=== PATIENT | female | born 1945 | race Caucasian/White ===

== ENCOUNTER 2021-09-05 14:09 | Outpatient (CLI) | payer MEDICARE | END 2021-09-05 14:10 | disposition home or self-care (01) | LOC: BICMAMMO 14:09 | PROVIDERS: ATTEND Family Medicine | DX: Z12.31 Encounter for screening mammogram for malignant neoplasm of breast (principal); Z13.820 Encounter for screening for osteoporosis; E55.9 Vitamin D deficiency, unspecified; M85.851 Other specified disorders of bone density and structure, right thigh; Z80.3 Family history of malignant neoplasm of breast | CPT/HCPCS: 77063; 77067; 77080 ==

== ENCOUNTER 2022-05-15 10:51 | Outpatient (CLI) | payer MEDICARE, OTHER ==
[2022-05-15 11:21] LABS: Hemoglobin 13.3 g/dL (12.0-15.5); Mean Corpuscular HGB CONC 30.9 g/dL (32.0-36.0); Mean Corpuscular Hemoglobin 25.9 pg (27.0-33.0); Mean Corpuscular Volume 83.8 fl (81.6-98.3); Mean Platelet Volume 11.3 fl (7.4-10.4); Platelet Count 291 10x3/uL (150-450); RBC Distribution Width 15.2 % (11.5-14.5); Red Blood Cell (RBC) Count 5.13 10x6/uL (3.90-5.03); White Blood Cell (WBC) Count 9.4 10x3/uL (3.5-10.5)
[2022-05-15 11:28] LABS: Bilirubin Neg (Negative); Blood, Urine Negative (Negative); Clarity Clear (Clear); Glucose, Urine (Dipstick) Normal (Negative); Ketone, Urine Negative (Negative); Leukocyte Negative (Negative); Nitrite Negative (Negative); Protein, Urine (Dipstick) Negative (Neg-Trace); Specific Gravity, Urine 1.015 (1.005-1.030); Urobilinogen Normal mg/dL (Less than 2)
[2022-05-15 11:40] LABS: PTT 29.4 sec (22.0-33.0); Prothrombin Time 11.2 sec (9.5-12.1)
[2022-05-15 11:50] LABS: ALT (SGPT) 35 U/L (8-55); AST (SGOT) 28 U/L (5-34); Albumin 4.6 g/dL (3.4-4.8); Alkaline Phosphatase 120 U/L (40-110); Anion Gap 17 mmol/L (10-20); BUN (Urea Nitrogen) 10 mg/dL (9.8-20.1); Bilirubin, Total 1.5 mg/dL (0.2-1.2); Calc. Creatinine Clearance 0 mL/min (70-130); Calcium 9.8 mg/dL (7.8-10.44); Carbon Dioxide 26 mmol/L (23-31); Chloride 102 mmol/L (98-107); Estimated GFR 74; Globulin 2.9 g/dL (2.4-3.5); Glucose 124 mg/dL (83-110); Potassium 4.2 mmol/L (3.5-5.1); Protein, Total 7.5 g/dL (5.8-8.1); Sodium 141 mmol/L (136-145)
== END 2022-05-15 10:52 | disposition home or self-care (01) ==
LOC: LABBT 10:51
PROVIDERS: ATTEND Internal Medicine Cardiovascular Disease
DX: Z01.818 Encounter for other preprocedural examination (principal); I48.0 Paroxysmal atrial fibrillation
CPT/HCPCS: 80053; 81003; 85027; 85610; 85730; 86850; 86900; 86901; 93005; 93010

== ENCOUNTER 2022-05-15 11:00 | Inpatient (IN) | payer MEDICARE, OTHER ==
[2022-05-15 11:21] LABS: Hemoglobin 13.3 g/dL (12.0-15.5); Mean Corpuscular HGB CONC 30.9 g/dL (32.0-36.0); Mean Corpuscular Hemoglobin 25.9 pg (27.0-33.0); Mean Corpuscular Volume 83.8 fl (81.6-98.3); Mean Platelet Volume 11.3 fl (7.4-10.4); Platelet Count 291 10x3/uL (150-450); RBC Distribution Width 15.2 % (11.5-14.5); Red Blood Cell (RBC) Count 5.13 10x6/uL (3.90-5.03); White Blood Cell (WBC) Count 9.4 10x3/uL (3.5-10.5)
[2022-05-15 11:28] LABS: Bilirubin Neg (Negative); Blood, Urine Negative (Negative); Clarity Clear (Clear); Glucose, Urine (Dipstick) Normal (Negative); Ketone, Urine Negative (Negative); Leukocyte Negative (Negative); Nitrite Negative (Negative); Protein, Urine (Dipstick) Negative (Neg-Trace); Specific Gravity, Urine 1.015 (1.005-1.030); Urobilinogen Normal mg/dL (Less than 2)
[2022-05-15 11:40] LABS: PTT 29.4 sec (22.0-33.0); Prothrombin Time 11.2 sec (9.5-12.1)
[2022-05-15 11:50] LABS: ALT (SGPT) 35 U/L (8-55); AST (SGOT) 28 U/L (5-34); Albumin 4.6 g/dL (3.4-4.8); Alkaline Phosphatase 120 U/L (40-110); Anion Gap 17 mmol/L (10-20); BUN (Urea Nitrogen) 10 mg/dL (9.8-20.1); Bilirubin, Total 1.5 mg/dL (0.2-1.2); Calc. Creatinine Clearance 0 mL/min (70-130); Calcium 9.8 mg/dL (7.8-10.44); Carbon Dioxide 26 mmol/L (23-31); Chloride 102 mmol/L (98-107); Estimated GFR 74; Globulin 2.9 g/dL (2.4-3.5); Glucose 124 mg/dL (83-110); Potassium 4.2 mmol/L (3.5-5.1); Protein, Total 7.5 g/dL (5.8-8.1); Sodium 141 mmol/L (136-145)
[2022-05-21] MEDS ORDERED: CEFAZOLIN 1 GM VIAL ONE ×2 (09:06→10:17)
[2022-05-21] MEDS ORDERED: Heparin 10,000 UNITS/ 10 ML VIAL ONE ×2 (09:06→10:17)
[2022-05-21] MEDS ORDERED: Protamine Sulfate 50 MG/5 ML VIAL ONE (09:06)
[2022-05-21] MEDS ORDERED: fentaNYL 50 mcg/mL 1 mL Vial ONE ×2 (10:15→12:20)
[2022-05-21] MEDS ORDERED: Lidocaine 1% PF 5 ML VIAL ONE (10:41)
[2022-05-21] MEDS ORDERED: Dexamethasone 20 MG/5 ML VIAL ONE (10:41)
[2022-05-21] MEDS ORDERED: Rocuronium Bromide 10 MG/ML (10ML VIAL) ONE (10:41)
[2022-05-21] MEDS ORDERED: PROPOFOL 200 MG/20 ML VIAL ONE (10:41)
[2022-05-21] MEDS ORDERED: Ondansetron PF 4 MG/2 ML Vial ONE (10:41)
[2022-05-21] MEDS ORDERED: Iopamidol 370 76% 100 ML VIAL ONE (12:30)
[2022-05-21] MEDS ORDERED: Acetaminophen/Codeine 30-300mg Tablet PO PRN ×2 (13:30)
[2022-05-21] MEDS ORDERED: Acetaminophen/Codeine 30-300mg Tablet ONE (15:19)
[2022-05-21 19:47] VITALS: BMI 23.1
[2022-05-21] MEDS ORDERED: Atorvastatin Calcium 40 MG TAB PO SCH (21:00)
[2022-05-21] MEDS ORDERED: CO Q-10 CAPSULE 50 MG PO SCH (21:00)
[2022-05-21] MEDS ORDERED: Doxycycline 100 MG CAP PO SCH (21:00)
[2022-05-21] MEDS: Apixaban 5 MG TAB PO SCH (21:49)
[2022-05-21] MEDS: Carvedilol 3.125 MG TAB PO SCH (21:49)
[2022-05-21] MEDS: Vit A,C & E/Lutein/Minerals Tablet PO SCH (21:49)
[2022-05-21] MEDS ORDERED: Digoxin 0.125 MG TAB PO SCH (22:15)
[2022-05-21] MEDS ORDERED: Valsartan 80 MG TAB PO SCH (22:15)
[2022-05-22] MEDS ORDERED: Digoxin 0.125 MG TAB PO SCH (09:00)
[2022-05-22] MEDS ORDERED: CRANBERRY 400 MG PO SCH (09:00)
[2022-05-22] MEDS ORDERED: Multivit, Therapeutic 1 TAB PO SCH (09:00)
[2022-05-22] MEDS ORDERED: Cholecalciferol 1,000 UNITS (25 MCG) TAB PO SCH (09:00)
[2022-05-22] MEDS ORDERED: Calcitonin,Salmon,Synthetic 200 Units 3.7 ML PUMP L NARE SCH (09:00)
[2022-05-22] MEDS ORDERED: Fluticasone Propionate Nasal Spray 16 gm Bottle NASAL SCH (09:00)
[2022-05-22] MEDS ORDERED: Fish Oil 1,000 MG CAP PO SCH (09:00)
[2022-05-22] MEDS ORDERED: Valsartan 80 MG TAB PO SCH (09:00)
[2022-05-22] MEDS ORDERED: Loratadine 10 MG TAB PO SCH (09:00)
[2022-05-22] MEDS ORDERED: Potassium Chloride 20 MEQ TAB PO SCH (09:00)
[2022-05-22] MEDS ORDERED: Furosemide 20 MG TAB PO SCH (09:00)
[2022-05-22] MEDS ORDERED: Floranex 1 GM Packet PO SCH (09:00)
[2022-05-22] MEDS: Apixaban 5 MG TAB PO SCH (09:03)
[2022-05-22] MEDS: Vit A,C & E/Lutein/Minerals Tablet PO SCH (09:03)
[2022-05-22] MEDS: Carvedilol 3.125 MG TAB PO SCH (09:08)
[2022-05-22 11:19] VITALS: BP 129/59; TEMP 97.5
== END 2022-05-22 11:52 | disposition home or self-care (01) | DRG 274 ==
LOC: SURG A 05-21 07:32 → 2NO 05-21 19:19
PROVIDERS: ADMIT Internal Medicine Cardiovascular Disease; ATTEND Internal Medicine Cardiovascular Disease
PROC: 02L73DK Occlusion of Left Atrial Appendage with Intraluminal Device, Percutaneous Approach (ICD-10-PCS; principal; 2022-05-21)
PROC: B24BZZ4 Ultrasonography of Heart with Aorta, Transesophageal (ICD-10-PCS; 2022-05-21)
DX: I48.0 Paroxysmal atrial fibrillation (principal); Z79.01 Long term (current) use of anticoagulants; Z88.2 Allergy status to sulfonamides; Z88.8 Allergy status to other drugs, medicaments and biological substances; Z91.018 Allergy to other foods; Z91.040 Latex allergy status; Z90.49 Acquired absence of other specified parts of digestive tract; Z98.890 Other specified postprocedural states
CPT/HCPCS: 33340; 80053; 81003; 85027; 85347; 85610; 85730; 86850; 86900; 86901; 93306; 93312; C1725; C1759; C1760; C1894; J0690; J1100; J1644; J2405; J2704; J2720; J3010; Q9967

== ENCOUNTER 2022-10-30 11:52 | Outpatient (CLI) | payer MEDICARE | END 2022-10-30 11:53 | disposition home or self-care (01) | LOC: BICMAMMO 11:52 | PROVIDERS: ATTEND Family Medicine | DX: Z12.31 Encounter for screening mammogram for malignant neoplasm of breast (principal); Z80.3 Family history of malignant neoplasm of breast | CPT/HCPCS: 77063; 77067 ==

== ENCOUNTER 2022-11-28 06:09 | Day surgery (SDC) | payer MEDICARE, OTHER ==
[2022-11-27 09:26] VITALS: BMI 23.5
[2022-11-27 10:32] LABS: Hematocrit 43.2 % (34.9-44.5); Hemoglobin 13.7 g/dL (12.0-15.5); Mean Corpuscular HGB CONC 31.7 g/dL (32.0-36.0); Mean Corpuscular Hemoglobin 26.6 pg (27.0-33.0); Mean Corpuscular Volume 83.9 fl (81.6-98.3); Mean Platelet Volume 11.2 fl (7.4-10.4); Platelet Count 322 10x3/uL (150-450); RBC Distribution Width 15.2 % (11.5-14.5); Red Blood Cell (RBC) Count 5.15 10x6/uL (3.90-5.03); White Blood Cell (WBC) Count 8.3 10x3/uL (3.5-10.5)
[2022-11-27 10:56] LABS: Anion Gap 14 mmol/L (10-20); BUN (Urea Nitrogen) 8 mg/dL (9.8-20.1); Calc. Creatinine Clearance 70 mL/min (70-130); Calcium 9.7 mg/dL (7.8-10.44); Carbon Dioxide 27 mmol/L (23-31); Chloride 103 mmol/L (98-107); Estimated GFR 78; Glucose 147 mg/dL (83-110); Potassium 4.5 mmol/L (3.5-5.1); Sodium 139 mmol/L (136-145)
[2022-11-28] MEDS ORDERED: PROPOFOL 40 ML ONE (06:53)
[2022-11-28] MEDS ORDERED: Lidocaine 1% PF 5 ML VIAL ONE (07:44)
== END 2022-11-28 09:00 | disposition home or self-care (01) ==
LOC: SDC 06:09
PROVIDERS: ATTEND Internal Medicine Cardiovascular Disease
PROC: B245ZZ4 Ultrasonography of Left Heart, Transesophageal (ICD-10-PCS; principal; 2022-11-28)
DX: I48.11 Longstanding persistent atrial fibrillation (principal); I11.0 Hypertensive heart disease with heart failure; I50.32 Chronic diastolic (congestive) heart failure; R42 Dizziness and giddiness; Z91.040 Latex allergy status; Z88.6 Allergy status to analgesic agent; Z88.5 Allergy status to narcotic agent; Z88.2 Allergy status to sulfonamides; Z79.01 Long term (current) use of anticoagulants; Z79.899 Other long term (current) drug therapy; Z86.73 Personal history of transient ischemic attack (TIA), and cerebral infarction without residual deficits; Z90.49 Acquired absence of other specified parts of digestive tract
CPT/HCPCS: 80048; 85027; 93312; J2704

== ENCOUNTER 2023-12-27 10:28 | Inpatient (IN) | payer MEDICARE ==
[2023-12-27 12:13] LABS: #Basophils 0.07 10x3/uL (0.0-0.2); %Basophils 0.4 % (0.0-1.0); %Eosinophils 0.2 % (0.0-10.0); %Lymphocytes 8.4 % (21.0-51.0); %Monocytes 12.6 % (0.0-10.0); %Neutrophils 77.9 % (42.0-75.0); Hematocrit 37.7 % (36.0-47.0); Hemoglobin 12.5 g/dL (12.0-16.0); Mean Corpuscular HGB CONC 33.2 g/dL (32.0-36.0); Mean Corpuscular Hemoglobin 26.8 pg (27.0-31.0); Mean Corpuscular Volume 80.9 fL (78.0-98.0); Mean Platelet Volume 10.9 fL (7.4-10.4); Platelet Count 297 10x3/uL (130-400); RBC Distribution Width 14.5 % (11.5-14.5); Red Blood Cell (RBC) Count 4.66 mill/uL (4.20-5.40)
[2023-12-27 12:23] LABS: ALT (SGPT) 20 U/L (8-55); AST (SGOT) 28 U/L (5-34); Albumin 3.6 g/dL (3.4-4.8); Alkaline Phosphatase 104 U/L (40-110); Anion Gap 16 mmol/L (10-20); BUN (Urea Nitrogen) 10 mg/dL (9.8-20.1); Bilirubin, Total 2.3 mg/dL (0.2-1.2); Calc. Creatinine Clearance 0 mL/min (70-130); Calcium 9.2 mg/dL (7.8-10.44); Carbon Dioxide 22 mmol/L (23-31); Chloride 102 mmol/L (98-107); Estimated GFR 89; Globulin 4.1 g/dL (2.4-3.5); Glucose 157 mg/dL (83-110); Magnesium 2.2 mg/dL (1.6-2.6); Potassium 3.7 mmol/L (3.5-5.1); Protein, Total 7.7 g/dL (5.8-8.1); Sodium 136 mmol/L (136-145)
[2023-12-27 12:28] LABS: Troponin I Less than 0.010 ng/mL (< 0.028)
[2023-12-27] MEDS ORDERED: cefTRIAXone (ROCEPHIN) 2 GM VIAL ONE (12:29)
[2023-12-27] MEDS ORDERED: Acetaminophen 500 MG TAB ONE (12:29)
[2023-12-27] MEDS ORDERED: Ondansetron PF 4 MG/2 ML Vial IVP PRN (14:00)
[2023-12-27 15:07] LABS: Bacteria/HPF None Seen HPF (None Seen); Bilirubin Negative (Negative); Blood, Urine Negative (Negative); CAUTI Indications for Culture Acute Hematuria; Clarity Clear (Clear); Glucose, Urine (Dipstick) Normal (Negative); Ketone, Urine Negative (Negative); Leukocyte Negative Leu/uL (Negative); Nitrite Negative (Negative); Protein, Urine (Dipstick) Negative (Neg-Trace); RBC/HPF 0-3 HPF (0-3); Squamous Epithelial None Seen HPF (0-3); Urobilinogen Normal mg/dL (Less than 2); WBC/HPF 0-3 HPF (0-3); pH, Urine 6.5 (5.0-9.0)
[2023-12-27 15:08] LABS: Urine Culture Reflex No No
[2023-12-27 16:11] LABS: Lactic Acid 2.43 mmol/L (0.5-2.2)
[2023-12-27 17:23] VITALS: BMI 22.5
[2023-12-27] MEDS: Vancomycin (BATCH) 1.75 GM in Premix 1 BAG IVPB SCH (22:05)
[2023-12-27] MEDS: Naproxen 500 MG TAB PO SCH (22:06)
[2023-12-27] MEDS: Carvedilol 3.125 MG TAB PO SCH (22:07)
[2023-12-28 04:43] LABS: #Basophils 0.07 10x3/uL (0.0-0.2); %Basophils 0.6 % (0.0-1.0); %Eosinophils 2.5 % (0.0-10.0); %Lymphocytes 22.6 % (21.0-51.0); %Monocytes 14.5 % (0.0-10.0); %Neutrophils 59.3 % (42.0-75.0); Hematocrit 32.7 % (36.0-47.0); Hemoglobin 10.4 g/dL (12.0-16.0); Mean Corpuscular HGB CONC 31.8 g/dL (32.0-36.0); Mean Corpuscular Hemoglobin 26.6 pg (27.0-31.0); Mean Corpuscular Volume 83.6 fL (78.0-98.0); Mean Platelet Volume 10.8 fL (7.4-10.4); Platelet Count 248 10x3/uL (130-400); RBC Distribution Width 14.6 % (11.5-14.5); Red Blood Cell (RBC) Count 3.91 mill/uL (4.20-5.40)
[2023-12-28 04:58] LABS: Anion Gap 12 mmol/L (10-20); BUN (Urea Nitrogen) 8 mg/dL (9.8-20.1); Calc. Creatinine Clearance 81 mL/min (70-130); Calcium 8.3 mg/dL (7.8-10.44); Carbon Dioxide 23 mmol/L (23-31); Chloride 107 mmol/L (98-107); Estimated GFR 90; Glucose 92 mg/dL (83-110); Potassium 3.1 mmol/L (3.5-5.1); Sodium 139 mmol/L (136-145)
[2023-12-28] MEDS: Digoxin 0.125 MG TAB PO SCH (08:35)
[2023-12-28] MEDS: Atorvastatin Calcium 40 MG TAB PO SCH (08:35)
[2023-12-28] MEDS: Furosemide 20 MG TAB PO SCH (08:36)
[2023-12-28] MEDS: Multivitamin W/ Minerals 1 TAB PO SCH (08:36)
[2023-12-28] MEDS: metFORMIN XR 500 MG ER.TAB PO SCH (08:36)
[2023-12-28] MEDS: Potassium Chloride 20 MEQ TAB PO SCH (08:36)
[2023-12-28] MEDS: Calcium Carbonate 600 MG TAB PO SCH (08:37)
[2023-12-28] MEDS: Vit A,C & E/Lutein/Minerals Tablet PO SCH (08:38)
[2023-12-28] MEDS: Fluticasone Propionate Nasal Spray 16 gm Bottle NASAL SCH (08:38)
[2023-12-28] MEDS: Floranex 1 GM Packet PO SCH (08:38)
[2023-12-28] MEDS ORDERED: Non-Formulary Item 1 EACH (Fluticasone Furoate [Arnuity Ellipta] 50 MCG Blst.W.Dev) IH SCH (09:00)
[2023-12-28] MEDS: Valsartan 80 MG TAB PO SCH ×2 (09:21→20:54)
[2023-12-28] MEDS: cefTRIAXone\\ROCEPHIN 2 GM in Sodium Chloride 0.9% 100 ML IVPB SCH (12:38)
[2023-12-28] MEDS: Acetaminophen 500 MG TAB PO PRN (12:45)
[2023-12-28] MEDS: traMADol HCl 50 MG TAB PO PRN (18:06)
[2023-12-29 04:28] LABS: #Basophils 0.06 10x3/uL (0.0-0.2); %Basophils 0.7 % (0.0-1.0); %Eosinophils 6.2 % (0.0-10.0); %Lymphocytes 22.7 % (21.0-51.0); %Monocytes 10.7 % (0.0-10.0); %Neutrophils 59.5 % (42.0-75.0); Hematocrit 34.2 % (36.0-47.0); Hemoglobin 10.9 g/dL (12.0-16.0); Mean Corpuscular HGB CONC 31.9 g/dL (32.0-36.0); Mean Corpuscular Hemoglobin 26.4 pg (27.0-31.0); Mean Corpuscular Volume 82.8 fL (78.0-98.0); Mean Platelet Volume 10.9 fL (7.4-10.4); Platelet Count 227 10x3/uL (130-400); RBC Distribution Width 14.5 % (11.5-14.5); Red Blood Cell (RBC) Count 4.13 mill/uL (4.20-5.40)
[2023-12-29 04:53] LABS: Anion Gap 12 mmol/L (10-20); BUN (Urea Nitrogen) 12 mg/dL (9.8-20.1); Calc. Creatinine Clearance 72 mL/min (70-130); Calcium 8.5 mg/dL (7.8-10.44); Carbon Dioxide 22 mmol/L (23-31); Cardiac Risk 2.8 (Less than 4.5); Chloride 107 mmol/L (98-107); Cholesterol 91 mg/dl (< 200 Desired); Estimated GFR 87; Glucose 97 mg/dL (83-110); HDL Cholesterol 32 mg/dL (>60 Neg Risk); LDL Cholesterol, Calculated 42 mg/dL; Potassium 3.5 mmol/L (3.5-5.1); Sodium 137 mmol/L (136-145); Triglycerides 87 mg/dL (Less than 150)
[2023-12-29] MEDS: Fish Oil 1,000 MG CAP PO SCH (09:04)
[2023-12-29] MEDS: Aspirin 81 mg Enteric Coated Tablet PO SCH (09:04)
[2023-12-29] MEDS: Calcitonin,Salmon,Synthetic 200 Units NASAL PUMP 3.7 ML L NARE SCH (09:11)
[2023-12-29 11:27] VITALS: BMI 22.5
[2023-12-29 15:30] VITALS: BP 168/76
[2023-12-29 16:11] VITALS: TEMP 97.5
[2023-12-30 11:48] LABS: ANA Symphony (Qualitative) Negative (Negative); ANA Symphony (Quantitative) 0.3 Ratio (< 0.7 Negative); EliA RAS New Method **** NEW METHOD ****; Rheumatoid Factor IgA Antibody 3.6 IU/mL (<14 Negative); Rheumatoid Factor IgM Antibody 1.1 IU/mL (<3.5 Negative); dsDNA IgG Antibody 4.5 IU/mL (<10 Negative)
[2023-12-30] MEDS ORDERED: FLU (Fluad Triv) TS24-25 (65UP)/MF59C/PF 45 MCG/0.5 ML Syringe IM ONE (17:30)
== END 2023-12-29 17:45 | disposition home or self-care (01) | DRG 65 ==
LOC: ERS 10:28 → ERHOLD 13:40 → 2NO 16:43
PROVIDERS: ADMIT Hospitalist; ATTEND Internal Medicine
DX: I63.9 Cerebral infarction, unspecified (principal); L03.114 Cellulitis of left upper limb; I48.0 Paroxysmal atrial fibrillation; E11.9 Type 2 diabetes mellitus without complications; S00.11XA Contusion of right eyelid and periocular area, initial encounter; E78.5 Hyperlipidemia, unspecified; M19.032 Primary osteoarthritis, left wrist; R55 Syncope and collapse; W19.XXXA Unspecified fall, initial encounter; Z98.890 Other specified postprocedural states; Z86.73 Personal history of transient ischemic attack (TIA), and cerebral infarction without residual deficits; Z88.8 Allergy status to other drugs, medicaments and biological substances; Z91.018 Allergy to other foods; Z88.2 Allergy status to sulfonamides; Z91.040 Latex allergy status; Z90.710 Acquired absence of both cervix and uterus; Z90.49 Acquired absence of other specified parts of digestive tract
CPT/HCPCS: 36415; 36416; 51701; 70450; 70486; 70551; 71045; 72125; 80048; 80053; 80061; 81001; 82550; 83520; 83605; 83735; 84484; 85025; 86038; 86141; 86225; 87040; 87077; 87086; 87149; 93005; 93010; 93306; 93880; 94760; 96365; 96366; 96367; J0696; J3370

== ENCOUNTER 2024-02-23 09:25 | Outpatient (CLI) | payer MEDICARE ==
[2024-02-23 10:21] LABS: #Basophils 0.08 10x3/uL (0.0-0.2); %Basophils 0.8 % (0.0-1.0); %Eosinophils 5.1 % (0.0-10.0); %Lymphocytes 16.5 % (21.0-51.0); %Monocytes 7.8 % (0.0-10.0); %Neutrophils 69.4 % (42.0-75.0); Hematocrit 43.7 % (36.0-47.0); Hemoglobin 13.6 g/dL (12.0-16.0); Mean Corpuscular HGB CONC 31.1 g/dL (32.0-36.0); Mean Corpuscular Volume 83.4 fL (78.0-98.0); Mean Platelet Volume 10.8 fL (7.4-10.4); Platelet Count 320 10x3/uL (130-400); RBC Distribution Width 14.6 % (11.5-14.5); Red Blood Cell (RBC) Count 5.24 mill/uL (4.20-5.40)
[2024-02-23 10:35] LABS: INR-International Normal Ratio 1.2; PTT 34.1 sec (22.9-36.1); Prothrombin Time 15.6 sec (12.0-14.7)
[2024-02-23 11:31] LABS: Anion Gap 14 mmol/L (10-20); BUN (Urea Nitrogen) 10 mg/dL (9.8-20.1); Calc. Creatinine Clearance 0 mL/min (70-130); Calcium 9.4 mg/dL (7.8-10.44); Carbon Dioxide 25 mmol/L (23-31); Chloride 107 mmol/L (98-107); Estimated GFR 88; Glucose 129 mg/dL (83-110); Potassium 4.2 mmol/L (3.5-5.1); Sodium 142 mmol/L (136-145)
== END 2024-02-23 09:26 | disposition home or self-care (01) ==
LOC: LABBT 09:25
PROVIDERS: ATTEND Internal Medicine Cardiovascular Disease
DX: Z01.812 Encounter for preprocedural laboratory examination (principal); I48.11 Longstanding persistent atrial fibrillation
CPT/HCPCS: 80048; 85025; 85610; 85730

== ENCOUNTER 2024-02-24 06:02 | Day surgery (SDC) | payer MEDICARE ==
[2024-02-23 09:55] VITALS: BMI 23.6
[2024-02-24] MEDS ORDERED: PROPOFOL 200 MG/20 ML VIAL ONE (08:38)
[2024-02-24] MEDS ORDERED: Lidocaine 1% PF 5 ML VIAL ONE (08:38)
== END 2024-02-24 10:13 | disposition home or self-care (01) ==
LOC: SDC 06:02
PROVIDERS: ATTEND Internal Medicine Cardiovascular Disease
PROC: B24BZZ4 Ultrasonography of Heart with Aorta, Transesophageal (ICD-10-PCS; principal; 2024-02-24)
DX: I48.11 Longstanding persistent atrial fibrillation (principal); I11.0 Hypertensive heart disease with heart failure; I50.32 Chronic diastolic (congestive) heart failure; E78.5 Hyperlipidemia, unspecified; G43.909 Migraine, unspecified, not intractable, without status migrainosus; Z95.818 Presence of other cardiac implants and grafts; Z86.73 Personal history of transient ischemic attack (TIA), and cerebral infarction without residual deficits; Z90.49 Acquired absence of other specified parts of digestive tract; Z90.710 Acquired absence of both cervix and uterus; Z91.040 Latex allergy status; Z88.8 Allergy status to other drugs, medicaments and biological substances; Z88.2 Allergy status to sulfonamides; Z79.01 Long term (current) use of anticoagulants; Z79.51 Long term (current) use of inhaled steroids; Z79.84 Long term (current) use of oral hypoglycemic drugs; Z79.82 Long term (current) use of aspirin; Z79.899 Other long term (current) drug therapy
CPT/HCPCS: 93312; J2704

== ENCOUNTER 2024-11-11 13:52 | Outpatient (CLI) | payer MEDICARE, OTHER | END 2024-11-11 13:53 | disposition home or self-care (01) | LOC: BICMAMMO 13:52 | PROVIDERS: ATTEND Family Medicine | DX: Z12.31 Encounter for screening mammogram for malignant neoplasm of breast (principal); Z80.3 Family history of malignant neoplasm of breast | CPT/HCPCS: 77063; 77067 ==